=== PATIENT | female | born 1995 | race Caucasian/White ===

== ENCOUNTER 2016-11-24 19:56 | Inpatient (IN) ==
[2016-11-24] MEDS ORDERED: TYLENOL PO PRN (20:14)
[2016-11-24] MEDS ORDERED: PITOCIN 30 UNITS/LR 30 UNITS/500 ML IV.SOLN IV SCH (20:14)
[2016-11-24] MEDS ORDERED: STADOL IV PRN ×2 (20:14)
[2016-11-24] MEDS ORDERED: PEPCID IV PRN (20:14)
[2016-11-24] MEDS ORDERED: AMBIEN PO PRN (20:14)
[2016-11-24] MEDS ORDERED: ZOFRAN IV PRN (20:14)
[2016-11-24] MEDS ORDERED: PEPCID PO PRN (20:14)
[2016-11-24] MEDS ORDERED: BRETHINE SUBQ PRN (20:14)
[2016-11-24] MEDS ORDERED: KEFZOL 1 GM/D5W 1 GM/50 ML IVPB IV PRN (20:14)
[2016-11-24] MEDS ORDERED: LR 1,000 ML IV ONE (20:14)
[2016-11-24] MEDS ORDERED: AMPICILLIN 2 GM/NS 2 GM/100 ML IVPB IV ONE (22:00)
[2016-11-24] MEDS ORDERED: CYTOTEC PO ONE (23:00)
[2016-11-24 23:17] LABS: MANUAL DIFF NEEDED? NO
[2016-11-24 23:17] LABS: URINE SOURCE VOIDED
[2016-11-24 23:22] LABS: BASO% 0.2 % (0.0-0.8); EOS# 0.05 X1000 (0.0-0.7); EOS% 0.5 % (0.0-10.0); HEMATOCRIT 36.7 % (37.0-47.0); HEMOGLOBIN 12.9 g/dL (12.0-16.0); IMM GRAN# 0.03 X1000 (0.0-0.04); IMM GRAN% 0.3 % (0.0-0.5); LYMPH# 2.44 X1000 (1.2-3.4); LYMPH% 22.9 % (20.5-51.1); MCH 34.4 PG (27-31); MCHC 35.1 g/dL (33-37); MCV 97.9 FL (81-99); MONO# 1.03 X1000 (0.11-0.59); MONO% 9.7 % (1.7-9.3); MPV 11.6 FL (7.4-10.4); NEUT% 66.4 % (42.2-75.2); PLT 225 X1000 (130-400); RBC 3.75 XMIL (4.2-5.4)
[2016-11-24 23:30] LABS: UR AMPHETAMINES QUAL NONE DETECTED (NONE DETECT); UR BARBITUATES QUAL NONE DETECTED (NONE DETECT); UR BENZODIAZEPIN QUAL NONE DETECTED (NONE DETECT); UR CANNABINOIDS QUAL NONE DETECTED (NONE DETECT); UR COCAINE QUAL NONE DETECTED (NONE DETECT); UR MDMA QUAL NONE DETECTED (NONE DETECT); UR METHADONE QUAL NONE DETECTED (NONE DETECT); UR METHAMPHETAMINE QUAL NONE DETECTED (NONE DETECT); UR OPIATES QUAL NONE DETECTED (NONE DETECT); UR OXYCODONE QUAL NONE DETECTED (NONE DETECT); UR PCP QUAL NONE DETECTED (NONE DETECT); UR TCA QUAL NONE DETECTED (NONE DETECT)
[2016-11-24 23:31] LABS: BILIRUBIN URINE NEGATIVE (NEGATIVE); BLOOD URINE NEGATIVE (NEGATIVE); CLARITY CLEAR (CLEAR); COLOR YELLOW; GLUCOSE URINE NEGATIVE (NEGATIVE); LEUKOCYTES URINE TRACE (NEGATIVE); NITRITE URINE NEGATIVE (NEGATIVE); PROTEIN URINE NEGATIVE (NEGATIVE); UROBILINOGEN URINE NORMAL
[2016-11-25] MEDS: AMPICILLIN 1 GM/NS 1 GM/50 ML IVPB IV SCH ×5 (01:43→18:01)
[2016-11-25] MEDS: STADOL IV PRN ×3 (01:51→05:51)
[2016-11-25] MEDS: CYTOTEC PO SCH (03:59)
[2016-11-25] MEDS: LR 1,000 ML IV SCH ×3 (05:53→10:15)
[2016-11-25] MEDS ORDERED: MINERAL OIL ONE (07:12)
[2016-11-25] MEDS ORDERED: XYLOCAINE-MPF 1% INJ ONE (07:13)
[2016-11-25] MEDS ORDERED: FENTANYL-BUPIV-NS 2 MCG-0.1% 200 ML EPIDURAL SCH (08:00)
[2016-11-25] MEDS ORDERED: NEO-SYNEPHRINE ONE ×3 (16:08→19:12)
[2016-11-25] MEDS ORDERED: NS 0 ML ONE ×2 (16:08→19:12)
[2016-11-25] MEDS ORDERED: ROBINUL ONE ×3 (16:08→19:12)
[2016-11-25] MEDS ORDERED: PITOCIN ONE ×4 (16:08→19:53)
[2016-11-25] MEDS ORDERED: ZOFRAN ONE ×3 (16:08→19:12)
[2016-11-25] MEDS ORDERED: PITOCIN 20 UNITS/LR 0 UNITS/0 ML IV.SOLN ONE (16:08)
[2016-11-25] MEDS ORDERED: ZOFRAN IV ONE (16:21)
[2016-11-25] MEDS ORDERED: PITOCIN 20 UNITS/LR 20 UNITS/1,000 ML IV.SOLN ONE ×2 (16:25→19:12)
[2016-11-25] MEDS ORDERED: NS 100 ML ONE (16:25)
[2016-11-25] MEDS ORDERED: BICITRA PO ONE (19:07)
--- NOTE | 2016-11-25 19:20 | HISTORY AND PHYSICAL ---
PHYSICIAN: Dr. Frausto. DIAGNOSES: 1. Post dates . 2. Failure to progress in labor. SUMMARY: La Shahid is a 21-year-old primigravida who is at 41-1/7 weeks gestation. Her blood type is O positive rubella immune. Hepatitis B surface antigen, HIV negative and group B strep positive. She has had an uncomplicated . Due to postdates she was brought in last night and placed on Cytotec. This morning her membranes were ruptured and she was 2- 3 cm dilated, nonparticulate meconium stained fluid was noted. She progressed to labor with Pitocin augmentation to 9 cm for greater than 3 hours she has not progressed past 9 cm. Her cervix is 90% effaced and the is at a -1 station with caput 0 station. After discussing options with the patient and her family we are proceeding with delivery for failure to progress in labor due to probable cephalopelvic disproportion. PAST MEDICAL HISTORY: Patient has no chronic medical or surgical illnesses. CURRENT MEDICATIONS: vitamins. ALLERGIES: None. PHYSICAL EXAMINATION: GENERAL: Shows a well-developed, well-nourished female. VITAL SIGNS: Stable and she is afebrile. CARDIOVASCULAR: Regular rate and rhythm without murmurs, rubs, gallops. PULMONARY: Clear. BREASTS: No masses. : Cervix as above. EXTREMITIES: Trace edema. IMPRESSION: 1. Failure to progress in labor. 2. Postdates . PLAN: Will proceed with delivery. Risks, benefits, possible complications, obstetrical indications were discussed detail. cc: Michelet Frausto MD [facility]
[2016-11-25] MEDS ORDERED: DURAMORPH ONE (19:44)
--- NOTE | 2016-11-25 20:53 | OPERATIVE NOTE ---
PROCEDURE DATE: 11/25/2016 SURGEON: Michelet Frausto MD ANESTHESIA: Epidural by Saravanan Johnson MD OPERATION PERFORMED: Primary low transverse section. PREOPERATIVE DIAGNOSES: 1. Post dates . 2. Failure to progress in labor. POSTOPERATIVE DIAGNOSIS: 1. Cephalopelvic disproportion. 2. Meconium-stained fluid. 3. Nuchal cord x1. 4. Cord around foot x1. PROCEDURE: Primary low-transverse section. FINDINGS: At 1948, a 7 pound 15 ounce female infant was delivered in a vertex presentation. Apgars were 9 at 1 minute and 10 at 5 minutes. There was meconium-stained fluid. There was a loop of cord around the neck and a loop of cord around the left foot. SUMMARY: Patient is taken back to the operating room and after appropriate epidural anesthesia, is placed in the supine position with a left lateral tilt. The abdomen is prepped and draped in usual fashion. A Luo catheter is in the urinary bladder. Prior to surgery the urine was slightly blood tinged. Once satisfactory conduction of anesthesia was demonstrated, a Pfannenstiel incision was made. This incision was taken down to the fascia and the fascia was excised transversely. The underlying rectus muscles are bluntly and sharply dissected free. The rectus muscle is in the midline. The peritoneum is entered. The lower uterine segment is identified. A bladder flap is created. A low transverse incision is made across the myometrium. This incision extended laterally using digital pressure. Meconium-stained fluid is noted when membranes are ruptured. The infant's vertex is delivered through this incision without difficulty. The nuchal cord is reduced. The shoulders and body delivered without complications. The oropharynx is bulb suctioned. Cord around the left foot is reduced. Cord is clamped and cut. The infant is handed to the nurses for further care and evaluation. Cord blood is obtained. Placenta is manually removed. The uterus is delivered onto the abdominal wall and explored. All membrane fragments are removed. The myometrium is then reapproximated using running #1 chromic suture, followed by several [id number] chromic sutures for complete hemostasis across the suture line. The uterus is placed back in pelvic cavity. Uterine incision is reexamined and found to be hemostatic. The pelvic cavity is irrigated with copious amounts of sterile water. Our initial and 2nd sponge, instrument, and needle count reported as correct. The peritoneum is closed using a running chromic suture. The fascia is then closed using running Vicryl sutures times two. The the adipose tissue is reapproximated using a running 3-0 Vicryl suture. A final sponge, instrument and needle count reported as correct. The skin edges are reapproximated using a 3-0 Monocryl. Anesthesia estimated our blood loss at 500 mL. There were no complications. The patient went to the recovery room in stable condition. cc: Michelet Frausto MD
[2016-11-25] MEDS ORDERED: ZOFRAN ODT PO PRN (20:58)
[2016-11-25] MEDS ORDERED: NARCAN INJ PRN (20:58)
[2016-11-25] MEDS ORDERED: BENADRYL IV PRN (20:58)
[2016-11-25] MEDS ORDERED: ZOFRAN IV PRN ×2 (20:58)
[2016-11-25] MEDS ORDERED: NORCO-5 PO PRN (20:59)
[2016-11-25] MEDS: NORCO-10 PO PRN (21:04)
[2016-11-26] MEDS: CYTOTEC PO SCH (00:30)
[2016-11-26] MEDS: AMPICILLIN 1 GM/NS 1 GM/50 ML IVPB IV SCH ×3 (00:32→06:42)
[2016-11-26] MEDS ORDERED: HYDROXYZINE IM PRN (03:12)
[2016-11-26] MEDS ORDERED: MYLICON PO PRN (03:12)
[2016-11-26] MEDS ORDERED: PITOCIN 20 UNITS/LR 20 UNITS/1,000 ML IV.SOLN IV ONE (03:12)
[2016-11-26] MEDS ORDERED: PITOCIN IM PRN (03:12)
[2016-11-26] MEDS ORDERED: DEMEROL IM PRN (03:12)
[2016-11-26] MEDS ORDERED: HYDROXYZINE PO PRN (03:12)
[2016-11-26] MEDS ORDERED: DULCOLAX PR PRN (03:12)
[2016-11-26] MEDS ORDERED: CYTOTEC PO PRN (03:12)
[2016-11-26] MEDS ORDERED: PHENERGAN IM PRN (03:12)
[2016-11-26] MEDS ORDERED: DEMEROL PO PRN ×2 (03:12)
[2016-11-26] MEDS ORDERED: PITOCIN 10 UNITS/LR 10 UNIT/1,000 ML IV.SOLN IV SCH (03:15)
[2016-11-26 06:13] LABS: MANUAL DIFF NEEDED? NO
[2016-11-26] MEDS: NORCO-10 PO PRN ×2 (06:35→17:21)
[2016-11-26 06:49] LABS: BASO% 0.1 % (0.0-0.8); EOS# 0.01 X1000 (0.0-0.7); EOS% 0.1 % (0.0-10.0); HEMATOCRIT 30.7 % (37.0-47.0); HEMOGLOBIN 10.1 g/dL (12.0-16.0); IMM GRAN# 0.05 X1000 (0.0-0.04); IMM GRAN% 0.3 % (0.0-0.5); LYMPH# 1.93 X1000 (1.2-3.4); LYMPH% 11.4 % (20.5-51.1); MCHC 32.9 g/dL (33-37); MCV 100.3 FL (81-99); MONO# 1.25 X1000 (0.11-0.59); MONO% 7.4 % (1.7-9.3); NEUT% 80.7 % (42.2-75.2); PLT 186 X1000 (130-400); RBC 3.06 XMIL (4.2-5.4)
[2016-11-26] MEDS: MYLICON PO SCH ×4 (09:10→21:31)
[2016-11-26] MEDS: MOTRIN PO PRN ×2 (09:56→17:22)
[2016-11-26] MEDS: PERICOLACE PO SCH (21:31)
[2016-11-27] MEDS: NORCO-10 PO PRN ×5 (00:32→22:37)
[2016-11-27] MEDS: AMBIEN PO PRN ×2 (00:40→22:36)
[2016-11-27] MEDS: MOTRIN PO PRN ×3 (00:40→19:09)
[2016-11-27] MEDS ORDERED: LR 1,000 ML IV SCH (03:12)
[2016-11-27] MEDS: MYLICON PO SCH ×4 (08:50→21:31)
[2016-11-27] MEDS: PERICOLACE PO SCH (21:30)
[2016-11-28] MEDS: MOTRIN PO PRN (02:52)
[2016-11-28] MEDS: NORCO-10 PO PRN ×2 (02:53→08:02)
== END 2016-11-28 15:15 | disposition home or self-care (01) ==
LOC: P.LD 19:56
PROVIDERS: ADMIT Obstetrics & Gynecology; ATTEND Obstetrics & Gynecology